=== PATIENT | male | born 1985 | race Caucasian/White ===

== ENCOUNTER 2018-12-30 09:34 | Emergency (ER) | payer OTHER ==
[~2018-12-30] VITALS: Ht 160 cm; Wt 74.0 kg
[2018-12-30 09:36] VITALS: BP 137/85; PULSE 80; RESP 19; Ht 160 cm; Wt 74.0 kg
[2018-12-30] MEDS ORDERED: ONDANSETRON (ODT) 4 MG TAB ODT STA (10:28)
[2018-12-30] MEDS ORDERED: ACETAMINOPHEN 325 MG TAB PO ONE (10:30)
[2018-12-30] MEDS ORDERED: LIDOCAINE 1% (MPF) 5 ML VIAL INJ ONE (11:30)
[2018-12-30] MEDS ORDERED: CEFTRIAXONE 250 MG INJ IM ONE (11:30)
[2018-12-30] MEDS ORDERED: IBUP-1542 PO (12:15)
[2018-12-30] MEDS ORDERED: ONDA4TAB14 PO (12:15)
[2018-12-30] MEDS ORDERED: DOXY100T20 PO (12:15)
[2018-12-30] MEDS ORDERED: CIPR500T4 PO (12:21)
--- NOTE | 2018-12-30 12:29 | ERD ---
ER Documentation Chief Complaint Chief Complaint LEFT TESTICULAR PAIN / MID ABDOMINAL PAIN HPI 33-year-old male patient with no significant past medical history presents to the ED complaining of left testicular pain that started yesterday. States that when he ate pork, 3 to 4 days ago, he felt that he was nauseous. States that he has had a few episodes of nonbilious nonbloody vomiting. Denies any concern for STDs. States that he is not sexually active. Reports he has some slight dysuria. Denies any chest pain, shortness of breath, chills, neck stiffness. ROS All systems reviewed and are negative except as per history of present illness. Medications Home Meds Active Scripts Ciprofloxacin Hcl* (Ciprofloxacin Hcl*) 500 Mg Tablet, 500 MG PO BID for 10 Days, TAB Prov:ELIF TRAN PA-C 12/30/18 Ondansetron (Ondansetron Odt) 4 Mg Tab.rapdis, 4 MG PO Q6H PRN for NAUSEA AND/OR VOMITING, #10 TAB Prov:ELIF TRAN PA-C 12/30/18 Ibuprofen* (Motrin*) 600 Mg Tab, 600 MG PO Q6, #30 TAB Prov:ELFI TRAN PA-C 12/30/18 Allergies Allergies: Coded Allergies: No Known Allergy (Unverified , 12/30/18) FmHx Family History: No diabetes, No coronary disease Physical Exam Vitals Vital Signs Date Temp Pulse Resp B/P (MAP) Pulse Ox O2 O2 Flow FiO2 Time Delivery Rate 12/30/18 98.2 80 19 137/85 98 09:36 (102) Physical Exam Const: [id number], well-nourished. In no acute distress. Head: Atraumatic, normocephalic Eyes: Normal Conjunctiva without injection. No purulent discharge. ENT: Normal external ear, nose. Moist oropharynx without tonsillar exudates. Non-erythematous pharynx. Uvula midline. No drooling. No trismus. Neck: No cervical midline tenderness. Full range of motion. No meningismus. No cervical lymphadenopathy. No JVD. Resp: Clear to auscultation bilaterally. No wheezing, rhonchi, rales, or crackles. No accessory muscle use. No retractions. Cardio: Regular rate and rhythm. No murmurs, rubs or gallops. Abd: Soft, left lower quadrant tenderness, non distended. Normal bowel sounds. No palpable masses. No rebound tenderness. No guarding. Negative McBurney's point. Negative psoas sign. Negative obturator sign. : Uncircumcised penis. No erythema, edema. Tenderness palpation of the left testicle. No phimosis. No paraphimosis. No penile discharge. Skin: No petechiae or rashes Back: No midline tenderness. No CVA tenderness. Ext: No cyanosis, or edema. Neur: Awake and alert. Normal gait. Normal coordination. Psych: Normal Mood and Affect Results 24 hrs Laboratory Tests Test 12/30/18 10:33 White Blood Count 13.2 10^3/ul Red Blood Count 5.22 10^6/ul Hemoglobin 14.7 g/dl Hematocrit 44.7 % Mean Corpuscular Volume 85.6 fl Mean Corpuscular Hemoglobin 28.2 pg Mean Corpuscular Hemoglobin Concent 32.9 g/dl Red Cell Distribution Width 12.9 % Platelet Count 355 10^3/UL Mean Platelet Volume 9.2 fl Immature Granulocytes % 0.200 % Neutrophils % 78.4 % Lymphocytes % 13.2 % Monocytes % 7.8 % Eosinophils % 0.2 % Basophils % 0.2 % Nucleated Red Blood Cells % 0.0 /100WBC Immature Granulocytes # 0.030 10^3/ul Neutrophils # 10.3 10^3/ul Lymphocytes # 1.7 10^3/ul Monocytes # 1.0 10^3/ul Eosinophils # 0.0 10^3/ul Basophils # 0.0 10^3/ul Nucleated Red Blood Cells # 0.0 10^3/ul Urine Color YELLOW Urine Clarity CLOUDY Urine pH 7.0 Urine Specific [place] 1.026 Urine Ketones TRACE mg/dL Urine Nitrite NEGATIVE mg/dL Urine Bilirubin NEGATIVE mg/dL Urine Urobilinogen 2+ mg/dL Urine Leukocyte Esterase 3+ Iris/ul Urine Microscopic RBC 58 /HPF Urine Microscopic WBC > 182 /HPF Urine Bacteria FEW /HPF Urine Mucus FEW /HPF Urine Hemoglobin 1+ mg/dL Urine Glucose NEGATIVE mg/dL Urine Total Protein 2+ mg/dl Sodium Level 143 mmol/L Potassium Level 4.0 mmol/L Chloride Level 102 mmol/L Carbon Dioxide Level 29 mmol/L Anion Gap 12 Blood Urea Nitrogen 13 mg/dl Creatinine 0.92 mg/dl Est Glomerular Filtrat Rate mL/min > 60 mL/min Glucose Level 102 mg/dl Calcium Level 9.6 mg/dl Total Bilirubin 0.6 mg/dl Direct Bilirubin 0.00 mg/dl Indirect Bilirubin 0.6 mg/dl Aspartate Amino Transf (AST/SGOT) 25 IU/L Alanine Aminotransferase (ALT/SGPT) 18 IU/L Alkaline Phosphatase 103 IU/L Total Protein 8.5 g/dl Albumin 4.7 g/dl Globulin 3.80 g/dl Albumin/Globulin Ratio 1.23 Lipase 26 U/L Chlamydia trachomatis RNA (TMA) DETECTED Chlamydia/GC Comment SEE NOTE Neisseria gonorrhoeae RNA (TMA) NOT DETECTED Current Medications Medications Dose Sig/Kathy Start Time Status Last (Trade) Ordered Route PRN Stop Time Admin Dose Reason Admin 650 mg ONCE ONCE 12/30/18 DC 12/30/18 Acetaminophen PO 10:30 12/30/18 10:40 (Tylenol 10:31 Tab) Ondansetron 4 mg ONCE STAT 12/30/18 DC 12/30/18 HCl (Zofran ODT 10:28 12/30/18 10:40 Odt) 10:30 Ceftriaxone 250 mg ONCE ONCE 12/30/18 DC 12/30/18 Sodium IM 11:30 12/30/18 11:55 (Rocephin) 11:31 Lidocaine 5 ml ONCE ONCE 12/30/18 DC 12/30/18 (Xylocaine INJ 11:30 12/30/18 11:55 1% (Mpf)) 11:31 1,000 mg ONCE ONCE 12/30/18 DC 12/30/18 Azithromycin PO 12:30 12/30/18 12:32 (Zithromax) 12:31 Procedures/MDM 33-year-old male patient with no significant past medical history presents ED complaining of left testicular pain. Patient is afebrile and nontoxic- appearing. Patient was further worked up with CBC, CMP, lipase, UA, scrotal ultrasound, urine culture. He denied wanting any pain medications. CBC: Leukocytosis of 13. No e/o of systemic infection. No e/o anemia. CMP: No e/o severe acidosis, alkalosis, renal failure, diabetic ketoacidosis, liver disease Lipase within normal limits. Urine: 3+ leukocyte esterase, no nitrites, 1+ hematuria. Scrotal ultrasound shows epididymitis. Patient will be treated here in the ED for suspected gonorrhea chlamydia however test is pending. Patient will be treated with ceftriaxone 250 g IM as well as 1 g of Zithromax. Patient will be treated on outpatient basis for urinary tract infection for ciprofloxacin. Low suspicion for testicular torsion, gastritis, GERD, peptic ulcer disease, cho lecystitis, choledocholithiasis, cholangitis, pancreatitis, appendicitis, bowel obstruction, ileus, volvulus, nephrolithiasis, pyelonephritis, hepatitis, perforated viscus, diverticulitis, abdominal hernia, acute abdomen, mesenteric ischemia or other emergent conditions. Discussed with my supervising physician, Dr. Swann who agreed with the management and discharge plan. Pending gonorrhea and Chlamydia test. Diagnosis: Epididymitis, Urinary Tract Infection Discharge medications: Ciprofloxacin, Zofran, Ibuprofen Follow up with primary care physician in 1-2 days for referral to plant guard. Instructed patient to return to the ED sooner for any worsening symptoms. Patient's questions were answered. Patient understood and agreed with discharge plan. Patient discharged stable. Disclaimer: Inadvertent spelling and grammatical errors are likely due to EHR/dictation software use and do not reflect on the overall quality of patient care. Also, please note that the electronic time recorded on this note does not necessarily reflect the actual time of the patient encounter. Departure Diagnosis: Primary Impression: Epididymitis Additional Impression: Urinary tract infection Urinary tract infection type: site unspecified Hematuria presence: without hematuria Qualified Codes: N39.0 - Urinary tract infection, site not specified Condition: Stable Patient Instructions: Urinary Tract Infections in Men, Epididymitis Referrals: [facility] () Usted se aguilar hecho un examen mdico de control que le indica que no est en sebastian condicin que requiera tratamiento urgente en el Departamento de Emergencia. Un estudio ms profundo y el tratamiento de waters condicin pueden esperar sin ningn riesgo hasta que usted sea atendida/o en el consultorio de waters mdico o sebastian clnica. Es responsabilidad suya arreglar sebastian brielle para el seguimiento del jah. MANEJO DE CONDICIONES NO URGENTES EN EL FUTURO 1) Si usted tiene un mdico de atencin primaria: Usgabriela debera llamar a waters mdico de atencin primaria antes de venir al departamento de emergencia. Despus de las horas de consultorio, waters doctor o waters asociado/a est disponible por telfono. El mdico o enfermero de dash en el servicio telefnico puede asesorarle por katarzyna medio para atender el problema, o jah contrario se puede programar sebastian brielle. 2) Si usted no tiene un mdico de atencin primaria: Llame al mdico o clnica de referencia que aparece abajo radha las horas de consultorio para hacer sebastian brielle para que le vean. CLINICAS: [facility] [phone] [facility] [id number] [facility] [phone] [facility]. [facility] [phone] [facility] [place] [phone] [facility] [phone] [address] [facility]. [facility] () Ange se aguilar hecho un examen mdico de control que le indica que no est en sebastian condicin que requiera tratamiento urgente en el Departamento de Emergencia. Un estudio ms profundo y el tratamiento de waters condicin pueden esperar sin ningn riesgo hasta que usted sea atendida/o en el consultorio de waters mdico o sebastian clnica. Es responsabilidad suya arreglar sebastian brielle para el seguimiento del jah. MANEJO DE CONDICIONES NO URGENTES EN EL FUTURO 1) Si usted tiene un mdico de atencin primaria: Usted debera llamar a waters mdico de atencin primaria antes de venir al departamento de emergencia. Despus de las horas de consultorio, waters doctor o waters asociado/a est disponible por telfono. El mdico o enfermero de dash en el servicio telefnico puede asesorarle por katarzyna medio para atender el problema, o jah contrario se puede programar sebastian brielle. 2) Si usted no tiene un mdico de atencin primaria: Llame al mdico o condado institucions de referencia que aparece abajo radha las horas de consultorio para hacer sebastian brielle para que le vean. SI USTED NO PUEDE PAGAR PARA AZRA UN MEDICO puede ir a: [facility] [address] [place] [address] [facility] [address] [place] [address] [facility] [address] [place] [address] [facility] [facility] [address] [place] [address] Additional Instructions: Llame al doctor MAANA y asha sebastian BRIELLE PARA DENTRO DE 2-3 BOYD.Dgale a la secretaria que nosotros le instruimos hacer esta brielle.Avise o llame si waters condicin se empeora antes de la brielle. Regresa aqui si peor o no mejor. ELIF TRAN PA-C December 30, 2018 12:29
[2018-12-30] MEDS ORDERED: AZITHROMYCIN 500 MG TAB PO ONE (12:30)
== END 2018-12-30 12:37 | disposition home or self-care (01) ==
LOC: FTE 09:34
DX: N45.1 Epididymitis (principal); N39.0 Urinary tract infection, site not specified
CPT/HCPCS: 36415; 76870; 80053; 81001; 83690; 85025; 87591; 96372; 99285; J0696